=== PATIENT | male | born 1985 | race American Indian/Alaskan Native ===

== ENCOUNTER 2019-07-22 02:18 | Emergency (ER) | payer BC ==
[2019-07-22] MEDS ORDERED: DIPHtheria,PERTUSSIS(ACELL),TETANUS VACCINE/PF 0.5 ML VIAL IM ONE (02:40)
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
--- NOTE | 2019-07-22 03:21 | XRay Report ---
Right wrist 4 views INDICATION: Right wrist pain following injury IMPRESSION: Prominent lunate dislocation. Impacted fracture involving the radial styloid. Ulnar stylo id process fracture. Signer Name: Abdirahman Ernst MD Signed: 07/22/2019 3:17 AM Workstation Name: [id number]
--- NOTE | 2019-07-22 04:10 | Cat Scan Report ---
CT head without contrast INDICATION : Headache following trauma. TECHNIQUE: Axial imaging performed from the skull apex through the skull base without the use of con trast. All CT examinations performed at this facility utilize dose modulation, iterative reconstruct ion or weight-based dosing, when appropriate, to reduce radiation dose to as low as reasonably achiev able. COMPARISON: None FINDINGS: No acute intracranial hemorrhage or parenchymal abnormality. Ventricles are normal in si ze and appear symmetric. Soft tissues including the orbits appear normal aside for mild prefrontal soft tissue contusion on the right. No acute osseous abnormality. Sinuses and mastoid air cells a re clear. IMPRESSION: No acute abnormality. Mild prefrontal soft tissue contusion Signer Name: Abdirahman Ernst MD Signed: 07/22/2019 4:05 AM Workstation Name: [email or web address]
[2019-07-22] MEDS ORDERED: KETAMINE 500 MG/5 ML VIAL MDV IV ONE (04:11)
[2019-07-22] MEDS ORDERED: SODIUM CHLORIDE 0.9% 1000 ML 1,000 ML IV ONE (04:11)
[2019-07-22] MEDS ORDERED: propofoL 200 MG/20 ML VIAL IV ONE (04:11)
--- NOTE | 2019-07-22 04:11 | Cat Scan Report ---
CT facial bones wo con INDICATION / CLINICAL INFORMATION: Trauma. Facial pain following injury TECHNIQUE: Routine maxillofacial CT All CT scans at this location are performed using CT dose reduction for ALAR A by means of automated exposure control. COMPARISON: None available. FINDINGS: The mandible is intact. The zygomatic arches and nasal bones are intact. The paranasal sinuses are gr ossly clear. Mild right prefrontal soft tissue edema/contusion present. No orbital fracture is identi fied. IMPRESSION: No facial fracture is identified. Signer Name: Abdirahman Ernst MD Signed: 07/22/2019 4:06 AM Workstation Name: [id number]
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
--- NOTE | 2019-07-22 05:50 | XRay Report ---
Right wrist 3 views INDICATION: Right wrist pain. IMPRESSION: Persistent lunate dislocation. Radial styloid and ulnar styloid fractures noted. Signer Name: Abdirahman Ernst MD Signed: 07/22/2019 5:45 AM Workstation Name: [id number]
[2019-07-22] MEDS ORDERED: ONDANSETRON 4 MG/2 ML INJ IV ONE (06:51)
[2019-07-22] MEDS ORDERED: MORPHINE 4 MG/1 ML INJ IV ONE (06:51)
[2019-07-22] MEDS ORDERED: ONDANSETRON 4 MG/2 ML INJ ONE (06:54)
[2019-07-22] MEDS ORDERED: MORPHINE 4 MG/1 ML INJ ONE (06:55)
[2019-07-22 07:22] VITALS: BP 170/101
== END 2019-07-22 07:35 | disposition other institution (70) ==
LOC: ED 02:18
DX: S00.83XA Contusion of other part of head, initial encounter (principal); S63.095A Other dislocation of left wrist and hand, initial encounter; X58.XXXA Exposure to other specified factors, initial encounter; Y93.89 Activity, other specified; Y92.89 Other specified places as the place of occurrence of the external cause; Y99.8 Other external cause status
CPT/HCPCS: 25690; 70450; 70486; 72125; 73110; 90471; 90715; 94760; 96365; 96375; 99285; J0690; J2270; J2405; J2704; J7030

== ENCOUNTER 2019-07-27 06:00 | Emergency (ER) | payer BC ==
[2019-07-27] MEDS ORDERED: MORPHINE 4 MG/1 ML INJ IM ONE (07:24)
[2019-07-27] MEDS ORDERED: KETOROLAC 60 MG/2 ML INJ IM ONE (07:24)
[2019-07-27] MEDS ORDERED: oxyCODONE /ACETAMINOPHEN 5-325MG TAB PO ONE (08:17)
--- NOTE | 2019-07-27 08:40 | Emergency Department Report ---
ED Upper Extremity Inj HPI - General Chief Complaint: Extremity Injury, Upper Stated Complaint: ARM PAIN Time Seen by Provider: 07/27/19 07:11 Source: patient Mode of arrival: Ambulatory Limitations: Physical Limitation - History of Present Illness Initial Comments: 33-year-old male had surgery on Monday with Dr. Galvan for a right wrist fracture. He presents to the emergency room complaining of severe pain. He states that the oxycodone that he has been taken at home is not taken away his pain. He has no other complaints MD Complaint: Injury to:: right Other Extremity Injury: Wrist: Right Improves With: none Associated Symptoms: denies other symptoms Treatments Prior to Arrival: splint (oxycodone and tylenol) - Related Data Previous Rx's Medication Instructions Recorded Last Taken Type Ibuprofen [Motrin] 800 mg PO Q8HR PRN #21 tablet 07/27/19 Unknown Rx Allergies Allergy/AdvReac Type Severity Reaction Status Date / Time tri Allergy Unknown Verified 07/22/19 02:24 ED Review of Systems ROS: Stated complaint: ARM PAIN Other details as noted in HPI Comment: All other systems reviewed and negative Constitutional: denies: chills, fever, malaise, weakness ENT: denies: ear pain Cardiovascular: denies: chest pain, edema Gastrointestinal: denies: abdominal pain, nausea, diarrhea, hematochezia Musculoskeletal: other (post surgical pain to the right hand) Neurological: denies: headache ED Past Medical Hx - Past Medical History Previous Medical History?: No - Surgical History Past Surgical History?: Yes Additional Surgical History: right wrist - Social History Smoking Status: Current Every Day Smoker Substance Use Type: None - Medications Home Medications: Home Medications Medication Instructions Recorded Confirmed Last Taken Type Ibuprofen [Motrin] 800 mg PO Q8HR PRN #21 tablet 07/27/19 Unknown Rx ED Physical Exam - General Limitations: Physical Limitation General appearance: alert, other (appears uncomfortable due to pain ) - Head Head exam: Present: normal inspection - Eye Eye exam: Present: normal appearance - ENT ENT exam: Present: mucous membranes moist - Respiratory Respiratory exam: Present: normal lung sounds bilaterally - Cardiovascular Cardiovascular Exam: Present: regular rate, normal heart sounds - Extremities Exam Extremities exam: Present: other (right arm splint from elbow to hand. Able to move fingers sensation intact, good capillary refill warm to touch. Swelling to fingers. ) ED Course Vital Signs 07/27/19 07/27/19 06:05 08:53 Temperature 99.4 F 97.3 F L Pulse Rate 101 H 84 Respiratory 18 22 Rate Blood Pressure 187/111 Blood Pressure 139/96 [Left] O2 Sat by Pulse 100 98 Oximetry - Reevaluation(s) Reevaluation #1: 07/27/19 0900 Patient states the pain has decreased he can relax more but states the pain is still an 8 out over 10 I prescribed Percocet to patient ED Medical Decision Making - Medical Decision Making 33-year-old male status post surgical fixation of for right wrist fracture on Monday. He presents to the emergency room with postoperative pain poorly managed with oxycodone 5 mg. Patient given Toradol 60 IM morphine 4 mg and 1 Percocet. This controlled the patient pain enough that he was able to be ready to discharge home. Patient states he has a prescription for oxycodone that he needs to filler picker at the pharmacy. I also prescribed Motrin 800 mg for patient to take in between the oxycodone. Patient instructed to call Dr. Galvan the orthopedic surgeon for further management of his pain. Critical Care Time: No Critical care attestation.: If time is entered above; I have spent that time in minutes in the direct care of this critically ill patient, excluding procedure time. ED Disposition Clinical Impression: Right upper limb pain Disposition: - TO HOME OR SELFCARE Is pt being admited?: No Does the pt Need Aspirin: No Condition: Stable Instructions: Wrist Fracture in Adults (ED) Additional Instructions: Follow-up with Dr Galvan as scheduled. Take oxycodone as prescribed by your doctor. In addition take Motrin 800 mg to help control pain rest elevate and apply ice to your right arm. If you are unable to move your fingers please foll ow-up with your surgeon immediately or return to the ER. Prescriptions: Ibuprofen [Motrin] 800 mg PO Q8HR PRN #21 tablet PRN Reason: Pain , Severe (7-10) Referrals: AMBERLY SPENCER MD [Primary Care Provider] - 3-5 Days Time of Disposition: 08:40
[2019-07-27 08:54] VITALS: BP 139/96
== END 2019-07-27 08:53 | disposition home or self-care (01) ==
LOC: ED 06:00
DX: M25.531 Pain in right wrist (principal); F17.200 Nicotine dependence, unspecified, uncomplicated; Z91.018 Allergy to other foods
CPT/HCPCS: 96372; 99282; J1885; J2270